=== PATIENT | male | born 1975 | race Caucasian/White ===

== ENCOUNTER 2023-06-25 10:35 | Emergency (ER) | payer BC, OTHER ==
[~2023-06-25] VITALS: Ht 154.9 cm; Wt 65.8 kg
[2023-06-25 11:01] VITALS: BP 151/91; PULSE 93; RESP 18; TEMP 98.3; O2SAT 97
[2023-06-25 13:19] VITALS: BP 151/91; PULSE 93; RESP 18; TEMP 98.3; O2SAT 97
== END 2023-06-25 13:20 | disposition home or self-care (01) ==
LOC: MED 10:35
DX: M79.644 Pain in right finger(s) (principal); R03.0 Elevated blood-pressure reading, without diagnosis of hypertension
CPT/HCPCS: 73140; 99283